=== PATIENT | female | born 1955 | race Caucasian/White ===

== ENCOUNTER 2017-02-09 06:38 | Day surgery (SDC) | payer SELFPAY ==
[2017-02-08 10:12] VITALS: BMI 26.6
[~2017-02-09 06:38] MED LIST: BACITRACIN/POLYMYXIN OPH OINT 3.5 GM TUBE OU ONE
[2017-02-09] MEDS ORDERED: BACITRACIN/POLYMYXIN OPH OINT 3.5 GM TUBE ONE (09:39)
[2017-02-09] MEDS ORDERED: BACITRACIN 15 GM TUBE TOPICAL OINTMENT ONE (09:40)
[2017-02-09] MEDS ORDERED: LIDOCAINE 1%/EPI 1:100000 (20 ML MULTI DOSE VIAL) ONE (09:40)
[2017-02-09] MEDS ORDERED: MINERAL OIL 25 ML OIL ONE (10:24)
[2017-02-09] MEDS ORDERED: PROPOFOL 20 ML ONE (12:01)
[2017-02-09] MEDS ORDERED: ROCURONIUM BROMIDE 50 MG/5 ML VIAL ONE (12:01)
[2017-02-09] MEDS ORDERED: MIDAZOLAM HCL 2 MG/2 ML SINGLE DOSE VIAL ONE ×2 (12:01)
[2017-02-09] MEDS ORDERED: LIDOCAINE HCL 2% JELLY (5 ML/TUBE) ONE (12:12)
[2017-02-09] MEDS ORDERED: ceFAZolin SODIUM 1 GM VIAL IVPB ONE (12:16)
[2017-02-09] MEDS ORDERED: ePHEDrine SULFATE 50 MG/1 ML AMPULE ONE (12:18)
[2017-02-09] MEDS ORDERED: LIDOCAINE 1%/EPI 1:100000 (20 ML MULTI DOSE VIAL) INF ONE (12:36)
[2017-02-09] MEDS ORDERED: BACITRACIN/POLYMYXIN OPH OINT 3.5 GM TUBE OU ONE (13:11)
[2017-02-09] MEDS ORDERED: ACETAMINOPHEN 325 MG TABLET (FP) PO PRN (15:19)
[2017-02-09] MEDS ORDERED: oxyCODONE HCL 5 MG TABLET PO PRN ×2 (15:19)
[2017-02-09] MEDS ORDERED: PROMETHAZINE HCL 25 MG/1 ML VIAL IVPUSH PRN (15:19)
[2017-02-09] MEDS ORDERED: ONDANSETRON 4 MG/2 ML VIAL IVPUSH PRN (15:19)
[2017-02-09] MEDS ORDERED: LACTATED RINGERS SOLUTION 1,000 ML IV SCH (15:30)
[2017-02-09 16:30] VITALS: TEMP 98.6
[2017-02-09 18:16] VITALS: BP 117/63; PULSE 84
--- NOTE | 2017-02-15 18:19 | PREOP ---
SURGEON: Paulie Olguin MD [facility] [employer] SURGEON: Nae Love PA-C PREOPERATIVE DIAGNOSES: Aging face and eyelid deformity. POSTOPERATIVE DIAGNOSES: Aging face and eyelid deformity. OPERATIVE PROCEDURE: 1. Bilateral upper and lower lid blepharoplasty. 2. Facelift. DESCRIPTION OF OPERATIVE PROCEDURE: The patient was taken to the operating room and after induction of general anesthesia in the supine position, both arms were tucked at the sides and the entire face was prepped in the usual fashion for facelift. The markings, which were made in the standing and sitting positions preoperatively, were outlined on the patient's face. At this point, 1% local lidocaine anesthesia with 1:100,000 epinephrine was injected into the upper and lower eyelids for blepharoplasty in the usual fashion. The neck was then infiltrated with a dilute 0.25% lidocaine with epinephrine for the neck procedure. After allowing topical anesthesia and hemostasis and placement of sterile drapes and timeout, attention was turned to the eyelids. Using the [place]-tip needle cautery, an upper lid blepharoplasty was carried out by excising the skin and orbicularis muscle on the upper eyelid on the right side. This was carried down to the septum. The septum was opened after removal of the skin, exposing the fat pads on the medial and inferomedial sides. The fat pad was then removed and hemostasis meticulously obtained. The exact same procedure was carried out symmetrically on the left upper eye and the wounds were closed with a 5-0 running Prolene subcuticularly. Attention was then turned to the lower lids. A lower lid blepharoplasty was previously marked. This was then incised along the subciliary margin to excise a block of skin and dermal tissue in the lower eyelid of the right eyelid. The skin was then elevated into its new anatomic position and closed with interrupted sutures after hemostasis with 5-0 plain catgut in running fashion. The exact same procedure was carried out symmetrically on the opposite lower lid, and good shape and contour were seen of the eyelids at this point. Bacitracin ophthalmic ointment was placed over both eyes and compression dressing with eye pad and Tegaderm was used to protect the eyelids. A facelift was then carried out, having been marked out previously in the sitting position. The areas were infiltrated with 1% local lidocaine anesthesia as dictated before. Incisions were then made in the preauricular and retrotragal area, down through the usual fascia for face lifting and then to the hairline in the postauricular area. Skin flaps were then raised to the midline on the neck. The neck was defatted using suction-assisted lipectomy. Then, a facelift was accomplished by elevating the skin and SMAS tissue in a superior fashion, tacking the SMAS with 4-0 Vicryl sutures and the skin with 3-0 Biosyn suture and interrupted running sutures of 5-0 nylon preauricularly and 4-0 Prolene in the retroauricular area. Good shape and contour were seen of the face on both sides. The patient tolerated the procedure well. She was dressed into a fluffy cotton dressing with circumferential wrap with a Den bandage and [place]. Good shape and contour were seen. The patient was awakened, extubated, and transferred to the recovery room in satisfactory condition. She tolerated the procedure well. PAULIE OLGUIN M.D. [id number]
== END 2017-02-09 18:25 | disposition home or self-care (01) ==
LOC: JASU-SURG 06:38
PROVIDERS: ATTEND Plastic Surgery
CPT/HCPCS: 94760